=== PATIENT | male | born 1955 | race Native Hawaiian/Other Pacific Islander ===

== ENCOUNTER 2019-10-01 19:50 | Emergency (ER) | payer OTHER ==
[~2019-10-01] VITALS: Ht 175.3 cm; Wt 89.8 kg
[2019-10-01 20:47] LABS: PLATELET COUNT 241 K/uL (142-355)
[2019-10-01 22:34] VITALS: BP 158/89; TEMP 98.2
[2019-10-01] MEDS ORDERED: RISP0.5T2 PO (22:37)
[2019-10-01] MEDS ORDERED: DIPH25CA90 PO (22:39)
[2019-10-01] MEDS ORDERED: AMANTADINE100 MG PO (22:39)
[2019-10-01] MEDS ORDERED: ANTACID500 MG PO (22:43)
[2019-10-01] MEDS ORDERED: DIVA250T2 PO (22:44)
[2019-10-01] MEDS ORDERED: FLUVOXAMINE50 MG PO (22:45)
[2019-10-01] MEDS ORDERED: MOBIC15 MG PO (22:46)
[2019-10-01] MEDS ORDERED: NALTREXONE50 MG PO (22:50)
[2019-10-01] MEDS ORDERED: PAXIL20 MG PO (22:52)
[2019-10-01] MEDS ORDERED: PRAMIPEXOLE1 MG PO (22:53)
[2019-10-01] MEDS ORDERED: RISP1TAB PO (22:54)
[2019-10-01] MEDS ORDERED: TRAZ50TA36 PO (22:56)
[2019-10-01] MEDS ORDERED: TUSSIN100 MG/5 M PO (23:00)
[2019-10-01] MEDS ORDERED: TYLENOL325 MG PO (23:02)
[2019-10-10] MEDS ORDERED: ATOR20TA2 PO (13:23)
[2019-10-10] MEDS ORDERED: CALC500T57 PO (13:23)
[2019-10-10] MEDS ORDERED: OLANZAPINE5 MG PO (13:23)
[2019-10-10] MEDS ORDERED: OLANZAPINE10 MG PO (13:23)
[2019-10-10] MEDS ORDERED: CARV6.25 PO (13:23)
[2019-10-10] MEDS ORDERED: DIVA125C PO (13:23)
[2019-10-10] MEDS ORDERED: CHOL100034 PO (13:23)
[2019-10-10] MEDS ORDERED: CYAN10009 IM (13:23)
[2019-10-10] MEDS ORDERED: RISP1TAB PO (13:23)
[2019-10-10] MEDS ORDERED: PARO20TA3 PO (13:23)
[2019-10-10] MEDS ORDERED: PANTOPRAZOLE 40MG TA PO (13:23)
[2019-10-10] MEDS ORDERED: FLUV100T PO ×2 (13:23)
== END 2019-10-01 22:34 | disposition other institution (70) ==
LOC: ED 19:50
DX: F20.89 Other schizophrenia (principal); E83.51 Hypocalcemia; Z03.818 Encounter for observation for suspected exposure to other biological agents ruled out; Z04.6 Encounter for general psychiatric examination, requested by authority
CPT/HCPCS: 36415; 80053; 81000; 85027; 87635; 93005; 99283; U0002

== ENCOUNTER 2020-04-30 19:00 | Emergency (ER) | payer OTHER ==
[~2020-04-30] VITALS: Ht 175.3 cm; Wt 90.3 kg
[~2020-04-30 19:00] MED LIST: AMANTADINE100 MG PO; ANTACID500 MG PO; ATOR20TA2 PO; CALC500T57 PO; CARV6.25 PO; CHOL100034 PO; CYAN10009 IM; DIPH25CA90 PO; DIVA125C PO; DIVA250T2 PO; FLUV100T PO; FLUVOXAMINE50 MG PO; MOBIC15 MG PO; NALTREXONE50 MG PO; OLANZAPINE10 MG PO; OLANZAPINE5 MG PO; PANTOPRAZOLE 40MG TA PO; PARO20TA3 PO; PAXIL20 MG PO; PRAMIPEXOLE1 MG PO; RISP0.5T2 PO; RISP1TAB PO; TRAZ50TA36 PO; TUSSIN100 MG/5 M PO; TYLENOL325 MG PO
[2020-04-30 19:31] LABS: PLATELET COUNT 166 K/uL (142-355)
[2020-04-30 19:35] LABS: POTASSIUM 4.3 mmol/L (3.6-5.2)
[2020-04-30 20:30] VITALS: BP 133/79; TEMP 97.9
[2020-05-01] MEDS ORDERED: MELATONIN5 M4 PO (04:26)
[2020-05-01] MEDS ORDERED: NITR0.4S2 SL (04:31)
[2020-05-01] MEDS ORDERED: FLUVOXAMINE100 MG PO (04:32)
[2020-05-01] MEDS ORDERED: RISP2TAB2 PO (04:36)
[2020-05-01] MEDS ORDERED: RISPERDAL3 MG PO (04:37)
[2020-05-01] MEDS ORDERED: OSCAL 500/1 TAB PO (04:47)
[2020-05-05] MEDS ORDERED: RISP1TAB PO ×2 (17:15)
[2020-05-05] MEDS ORDERED: CYAN10009 IM (17:15)
[2020-05-05] MEDS ORDERED: DIVALPROEX500 MG PO (17:16)
[2020-05-05] MEDS ORDERED: FLUV100T PO ×2 (17:16)
== END 2020-04-30 20:30 | disposition still patient (30) ==
LOC: ED 19:08
PROVIDERS: Hospitalist
DX: F20.89 Other schizophrenia (principal); F31.89 Other bipolar disorder; F43.10 Post-traumatic stress disorder, unspecified; Z11.59 Encounter for screening for other viral diseases; Z04.6 Encounter for general psychiatric examination, requested by authority
CPT/HCPCS: 36415; 80053; 85027; 87635; 93005; 99283; U0003